=== PATIENT | female | born 1970 ===

== ENCOUNTER 2025-04-28 08:31 | Outpatient (AMB) | payer OTHER, SELFPAY ==
--- OUTSIDE RECORDS SUMMARY | 2025-04-26 12:00 | XMS_ITS | Encounter Summary ---
Author Organization [employer] Address [address] [place] [address] Care Team Providers Care Tool Distributor Name Role Phone Etelvina Jalloh MD Primary Care Prov ider Reason for Visit * Reason Comments Pain Lower left side Encounter Details Date Type Department Care Team (Late st Contact Info) Description 04/26/2025 12:00 PM EDT Office Visit Adult [facility] [address] [place] [address] Satinder Reid PA [address] [place] [address] Diverticulitis (Primary Dx) Social History Tobacco Use Types Packs/Day Years Used Date Smoking Tobacco: Never Smokeless Tobacco: Never Tobacco Cessation:Counseling Given: Not Answered Alcohol Use Standard Drinks/Week Comments Not Currently 0 (1 standard drink = 0.6 oz pur e alcohol) Food Access & Nutrition Answer Date Rec orded Do you have access to a vari ety of food including fruits and vegetables? Yes 07/13/2024 Access to Healthcare Answer Date Record ed Within the last 3 months, ho w many times did you visit the emergency department for your medical care? 0 07/13/2024 Health Literacy Answer Date Recorded How often do you need to hav e someone help you when you read instructions, pamphlets, or other written material from your doctor or pharmacy? Never 07/13/2024 Caregiver: How often do you need to have someone help you when you read instructions, pamphlets, or other written material from your doctor or pharmacy? Not on file 07/13/2024 Financial Risk Answer Date Recorded How hard is it for you to pa y for the very basics like food, housing, medical care, and air conditioning / heating? Not very hard 07/13/2024 Social Isolation Answer Date Recorded How often do you feel lonely or isolated from th ose around you? Never 07/13/2024 Food Risk Answer Date Recorded Within the past 12 months we worried whether our food would run out before we got money to buy more. Never true 07/13/2024 Within the past 12 months th e food we bought just didn't last and we didn't have money to get more. Never true 07/13/2024 Dependent Care Answer Date Recorded Do you need help finding or paying for care for your loved ones. For example, child welfare specialist or elderly care for an older adult? No 07/13/2024 Living Situation Answer Date Recorded What is your living situation? 1 09/12/2023 Comments No Sex and Gender Information Value Date Recorded Sex Assigned at Not on file Legal Sex Female 9:05 AM EST Gender Identity Not on file Sexual Orientation Not on file documented as of this encounter Last Filed Vital Signs Vital Sign Reading Time Taken Comments Blood Pressure 146/90 04/26/2025 11:45 AM EDT provider will recheck Pulse 88 04/26/2025 11:45 AM EDT Temperature 35.9 C (96.7 F) 04/26/2025 11:45 AM EDT Respiratory Rate 15 04/26/2025 11:4 5 AM EDT Oxygen Saturation 97% 04/26/2025 11: 45 AM EDT Inhaled Oxygen Concentration - - Weight 120 kg (264 lb) 04/26/2025 11:45 AM EDT Height 160 cm (5' 3 ) 04/26/2025 11:45 AM EDT Body Mass Index 46.77 04/26/2025 11:45 AM EDT documented in this encounter Ordered Prescriptions Prescription Sig Dispense Quantity Refills Last Filled Start Date End Date amoxicillin-clavul anate (AUGMENTIN) 875-125 mg per tablet Take 1 tablet by mouth 2 (two) times a day for 14 days. 28 each 04/26/2025 05/10/2025 documented in this encounter Progress Notes * ANDREW Avelar - 04/26/2025 12:00 PM EDT CHIEF COMPLAINT: Pain (Lower left side) IDENTIFIER: Annel Romo is a 54 y.o. old female. HPI: This pleasant patient presents today complaining of left lower quadrant pain, has been going on forthe last day or 2. States feels like diverticulitis she does have a history of several previous diverticulitis episodes denies nausea or vomiting no bowel habit changes denies fevers. 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 Lichen sclerosus of vulva 12/26/2021 Vitamin D deficiency 10/21/2019 Hypertension 09/30/2019 Diverticulitis 05/08/2019 Uterine fibroid 09/15/2018 MS (multiple sclerosis) ([facility] V24, [facility] V28) 05/09/2018 Carpal tunnel syndrome 02/26/2013 Past Surgical History: Procedure Laterality Date BREAST BIOPSY Bilateral PROCEDURE: BX BREAST; PERC NEEDLE CORE W/IMAG GUID; COMMENT: benign CHOLECYSTECTOMY PROCEDURE: WA LAPAROSCOPY SURG CHOLECYSTECTOMY OTHER SURGICAL HISTORY PROCEDURE: LAPAROSCOPY PROCEDURE NEC; COMMENT: ovary cyst removed OTHER SURGICAL HISTORY Bilateral 03/28/2022 PROCEDURE: WA VULVECTOMY SIMPLE PARTIAL; COMMENT: Bilateral partial simple vulvectomy TUBAL LIGATION PROCEDURE: HISTORICAL TUBAL LIGATION; COMMENT: laparascopic SOCIAL HISTORY: Social History Tobacco Use Smoking status: Never Smokeless tobacco: Never Substance Use Topics Alcohol use: Not Currently FAMILY HISTORY: Family History Problem Relation Name Age of Onset Diabetes Mother Hypertension Mother Hypertension Father Hypertension Brother Breast cancer Neg Hx Uterine cancer Neg Hx Ovarian cancer Neg Hx Colon cancer Neg Hx Family Status Relation Name Status Mother dm,htn, COPD Father aneurysm of the brain, HTN, DM Brother (Not Specified) Neg Hx (Not Specified) Sister Alive identical twin Sister Alive Sister Alive Brother Alive HTN, Obese Brother Alive Brother Alive Son Alive Son Alive Son Alive No partnership data on file MEDICATIONS DISCONTINUED/REORDERED: There are no discontinued medications. ACTIVE MEDICATIONS: Outpatient Medications Marked as Taking for the 04/26/25 encounter (Office Visit) with ANDREW Avelar Medication Sig Dispense Refill clobetasoL (TEMOVATE) 0.05 % ointment Apply topically 1 (one) time each day. 30 g 2 cloNIDine (CATAPRES) 0.1 mg tablet 1 tablet (0.1 mg total). dimethyl fumarate 240 mg capsule,delayed release(DR/EC) Take 1 capsule by mouth 2 times daily. estradioL (ESTRACE) 0.01 % (0.1 mg/gram) vaginal cream PLEASE SEE ATTACHED FOR DETAILED DIRECTIONS fluconazole (DIFLUCAN) 100 mg tablet Take 1 tablet (100 mg total) by mouth 1 (one) time each day. ALLERGIES: No Known Allergies PHYSICAL EXAM: Visit Vitals BP (!) 146/90 Comment: provider will recheck Pulse 88 Temp 35.9 ??C (96.7 ??F) (Temporal) Resp 15 Ht 1.6 m (63 ) Wt 120 kg (264 lb) SpO2 97% BMI 46.77 kg/m?? OB Status Premenopausal Smoking Status Never BSA 2.18 m?? General appearance: alert and oriented, in no acute distress Lungs: clear to auscultation bilaterally Heart: regular rate and rhythm, S1, S2 normal, no murmur, click, rub or gallop Abdomen: Does have some left lower quadrant abdominal tenderness no guarding or rebound LABS/IMAGING: none IMPRESSION: 1. Diverticulitis PLAN: 1. Likely diverticulitis based on the presentation does have a known history of this and she statesthat this feels like previous episodes no red flags at this time. We did discuss doing a CT scan but she would prefer not to at this point. I do think it is reasonable to treat her empirically with some Augmentin and see how she does if she does not have any improvement or has any signs of worsening I think we should proceed with CT scan. We also talked about colon cancer screening which I believe she is due for she states that she does have a Cologuard test at home that she plans on using. We did talk about dietary changes again discussed warning signs and symptoms. Advised the patient to call me if any problems. Patient understands the plan. Patient is in agreement with the plan. documented in this encounter Plan of Treatment Upcoming Encounters Date Type Department Care Team (Late st Contact Info) Description 05/10/2025 6:10 PM EDT Appointment Radiology Department - [address] [phone] 07/14/2025 7:30 AM EST Office Visit [facility] - [address] [phone] Etelvina Jalloh MD [address] [place] [address] documented as of this encounter Visit Diagnoses Diagnosis Diverticulitis- Primary Diverticulitis of colon (without mention of hemorrhage) documented in this encounter Historical Medications * This list may reflect changes made after this encounter. fluconazole (DIFLUCAN) 100 mg tablet Take 1 tablet (100 mg total) by mouth 1 (one) time each day. 02/19/2025 estradioL (ESTRACE) 0.01 % (0.1 mg/gram) vaginal cream PLEASE SEE ATTACHED FOR DETAILED DIRECTIONS 02/19/2025 cloNIDine (CATAPRES) 0.1 mg tablet 1 tablet (0.1 mg total). 02/18/2025 added in this encounter Additional Health Concerns Assessment Noted Time PHQ-9 Depression Total Score: 0 04/26/20 11:47 AM EDT documented as of this encounter Care Teams Tool Distributor Relationship Specialty Start Date End Date Etelvina Jalloh MD [address] [place] [address] PCP - General Internal Medicine 07/09/24 documented as of this encounter
--- NOTE | 2025-04-28 08:43 | MHC.OFFVIS ---
Intake Visit Reasons: 6m follow up Allergies No Known Allergies Allergy (Verified 04/21/25 06:54) Medication List - Last Reconciled 04/28/25 by Brigitte Foster MD cetirizine (Zyrtec) 10 mg PO DAILY PRN dimethyl fumarate 240 mg PO BID 90 days estradiol 0.01%(0.1mg/gram) vaginal omeprazole 20 mg PO DAILY HPI Comments Details: Doing well with no new symptoms. Here for f/u of RR-MS. No change in left lateral thigh numbness especially at night. Gets flushing with the generic Tecfidera more than with brand name lasting 10-15 minutes. Numbness in both legs is gone. Sleep is better. No fatigue. 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 Cognitive functions intact. LBP is better. No new symptoms of MS. Taking Tylenol arthritis for ache and pain. She developed episodes of blurred vision in the left eye starting August 2017. They last from 3-5 min. and then the vision returns to normal. One episode where the vision was blurred in both eyes. Still gets flushing with Jordan. She's never had any neurological problems and does not have any permanent visual impairment. She has no history of skin rash or joint disease no tick bites. No change in her energy level or coordination. [facility] Medical History (Updated 04/28/25 @ 08:48 by Brigitte Foster MD) Meralgia paresthetica Migraine with aura Multiple sclerosis Review of Systems Const Details: Sleep:? Difficulty getting to sleep?denies.? Difficulty maintaining sleep?denies?.? Urge to move legs?denies.? Teeth grinding?denies.? Shouting or Kicking during sleep?denies.? Abnormal behavior during sleep?denies.? Excessive sleep?denies.? Snoring?denies.? Daytime sleepiness?denies.? ?? General/Constitutional:? Change in appetite?denies.? Chills?denies.? Fatigue?denies.? Fever?denies.? Weight gain?denies.? Weight loss?denies.? ?? Ophthalmologic:? Blurred vision?Usually in the left eye and once in both eyes.? Diminished visual acuity?denies.? ?? ENT:? Stuffiness?denies.? Decreased hearing?denies.? Dry mouth?denies.? Ear pain?denies.? Nosebleed?denies.? Ringing in the ears?denies.? Sinus pain?denies.? Sore throat?denies.? Swollen glands?denies.? ?? Endocrine:? Cold intolerance?denies.? Excessive thirst?denies.? Frequent urination?denies.? Heat intolerance?denies.? ?? Respiratory:? Shortness of breath?denies.? Chest pain?denies.? Cough?denies.? ?? Breast:? Breast lump?denies.? Nipple discharge?denies.? ?? Cardiovascular:? Chest pain at rest?denies.? Chest pain with exertion?denies.? Claudication?denies.? Dizziness?denies.? Fluid accumulation in the legs?denies.? Irregular heartbeat?denies.? Palpitations?denies.? ?? Gastrointestinal:? Abdominal pain?denies.? Constipation?denies.? Diarrhea?denies.? Difficulty swallowing?denies.? Heartburn?denies.? Nausea?denies.? Rectal bleeding?denies.? ?? Hematology:? Easy bruising?denies.? Prolonged bleeding?denies.? ?? Genitourinary:? Frequent urination?denies.? Urgency?denies.? Incontinence?denies.? Erectile Dysfunction?denies.? ?? Musculoskeletal:? Neck pain?denies.? Back pain?denies.? Muscle aches?denies.? Painful joints?denies.? Sciatica?denies.? Weakness?denies.? ?? Podiatric:? Difficulty walking?denies.? Foot numbness?denies.? ?? Neurologic:? Difficulty swallowing?denies.? Balance difficulty?denies.? Coordination?normal.? Difficulty speaking?denies.? Dizziness?denies.? Fainting?denies.? Gait abnormality?denies.? Headache?denies.? Loss of strength?denies.? Loss of use of extremity?denies.? Low back pain?denies.? Memory loss?denies.? Seizures?denies.? Tics?denies.? Tingling/Numbness?denies.? Transient loss of vision?denies.? Tremor?denies.? ?? Psychiatric:? Anxiety?denies.? Auditory/visual hallucinations?denies.? Delusions?denies.? Depressed mood?denies.? Stressors?denies.? Substance abuse?denies.? Suicidal thoughts?denies.? ?? Physical Exam Neuro Other: Neurological Abnormal neurological findings:??none.? Mental Status:?alert and oriented X 3,?Normal attention, orientation, memory and affect.? Cranial Nerves:?Pupils are equal, round and reactive to light. Fundoscopy shows normal disc bilaterally. External occular muscles are intact. Visual vasquez are full, no ptosis. Face is symmetrical, no facial weakness or droop. Facial sensations are normal. Tongue protrudes in midline. Palate elevates symmetrically. Shoulder shrugging is normal..? Motor Examination:?Normal muscle tone, bulk and strength,?No atrophy or fasciculations,?No drift of the extended upper extremities,?Deep tendon reflexes are 2+?,?Plantars are flexor?.? Straight Leg Raising:?90 degrees.? Sensory Exam:?Normal light touch, temperature, pinprick, vibration and joint-position sensations?,?Rhomberg sign is absent.? Coordination:?no ataxia,?no titubation,?posxgv-rq-mgee, voqh-oiqm-rory test and rapid alternating movements were normal.? Gait Exam:?Within normal limits.? Cerebellar Signs:?Uyvgoh-xt-hnqx and efgc-dl-ynqk is normal,?no dysdiadochokinesia?.? Extrapyramidal System:?No tremor, rigidity with normal facial expressions,?No bradykinesia, no bradyphrenia. Normal arm swing and posture. No propulsion or retropulsion.? Speech:?Normal,?no dysphasia or dysarthria..? Mini Mental Status Exam Level of Consciousness:?Alert.? Orientation:?Knows correct year, month, date, day and season,?Knows correct city, county and state. Knows correct location and floor.? Registration:?Able to register 3 objects.? Attention:?Serial 7's performed accurately.? Recall:?Able to recall 3 out of 3 objects.? Language:?Normal spontaneous speech, fluency, repetition,naming, comprehension, reading and writing.? Total Score:?30/30.? General Examination GENERAL APPEARANCE:??normal,?in no acute distress.? HEART:??S1, S2 normal,?no murmurs.? LUNGS:??clear anteriorly and posteriorly.? MUSCULOSKELETAL:??normal.? EXTREMITIES:??no edema.? PSYCH:??alert, oriented,?cognitive function intact,?cooperative with exam.?Physical Examination: Assessment & Plan Assessment & Plan (1) Multiple sclerosis: Comment: 10/23/22 MRI brain with extensive white matter lesions unchanged from 2019. Code(s): G35 - Multiple sclerosis Category: Medical (2) Migraine with aura: Code(s): G43.109 - Migraine with aura, not intractable, without status migrainosus Category: Medical (3) Meralgia paresthetica: Code(s): G57.10 - Meralgia paresthetica, unspecified lower limb Category: Medical Plan Continue current meds. Exercise daily Orders: Orders MR head/brain wo/w con 3 Weeks G35 - Multiple sclerosis Medications: Refilled dimethyl fumarate 240 mg PO BID 180 caps 1RF 90 days Coding Level of Care Code Est Pt Level 4 (00249) Diagnoses Multiple sclerosis G35 Migraine with aura G43.109 Meralgia paresthetica G57.10
--- OUTSIDE RECORDS SUMMARY | 2025-04-28 08:54 | XMS_ITS | Encounter Summary ---
Author Organization [employer] Address [address] [place] [address] Care Team Providers Care Hourly Sign Language Interpreter Name Role Phone Etelvina Jalloh MD Primary Care Prov ider Reason for Visit * Reason Onset Date Comments Diverticulitis 04/26/2025 Encounter Details Date Type Department Care Team (Late st Contact Info) Description 04/26/2025 Telephone Adult Medicine [address] [phone] Etelvina Jalloh MD [address] [place] [id number] Social History Tobacco Use Types Packs/Day Years Used Date Smoking Tobacco: Never Smokeless Tobacco: Never Alcohol Use Standard Drinks/Week Comments Not Currently [...] for your loved ones. For example, child care counselor or elderly care for an older adult? No 07/13/2024 Living Situation Answer Date Recorded What is your living situation? 1 09/12/2023 Comments No Sex and Gender Information Value Date Recorded Sex Assigned at Not on file Legal Sex Female 9:05 AM EST Gender Identity Not on file Sexual Orientation Not on file documented as of this encounter Progress Notes * Princess Garcia RN - 04/26/2025 10:48 AM EDT Spoke with the pt Sharp pain on the low left side History of diverticulitis, previously flare was 2 years ago then a year before that. No changes in bowel habits, no blood in stool. Ate a Whopper yesterday and thinks the seeds on the bun are the problem Scheduled eval for 04/26 at 11:45 with 30 min * Clair Cobos - 04/26/2025 9:57 AM EDT Patient call requires triage: Symptoms patient is presenting: Having a flare up with her diverticulitis and would like to know ifshe can get antibiotics for it. How long has patient had these symptoms?: Day 2 For ALL patients calling to schedule any appointment (routine, sick visit, follow up, consult, etc.) in the outpatient setting please ask the following questions: Do you have fever of higher than 101, sore throat with difficulty swallowing or severe shortness ofbreath? no If YES to any of these above symptoms, send a message to triage and do not book. Red dot. If no, an audio or video visit should be booked. Have you had close contact with someone with Coronavirus in the last 14 days? no Have you traveled abroad? no Have you traveled recently to another state outside of [place], [place], [place], [place], [place], [place], [place]? no o If yes, did you quarantine for 14 days or have a negative covid test? no If yes to any of the above, patient is not to be scheduled in office until after 14 day quarantine or negative covid test. If pain or injury related was it due to an accident at work or from a motor vehicle accident? If yes, date of accident/Injury: No If yes, gather 3rd constitution party insurance information Third Democrat Information: not applicable PCP: Etelvina Ramsey MD Payor: [employer] EventTool / Plan: [employer] O / Product Type: *No Product type* / documented in this encounter Plan of Treatment Upcoming Encounters Date Type Department Care Team (Late st Contact Info) Description 05/10/2025 6:10 PM EDT Appointment Radiology Department [address] [phone] 07/14/2025 7:30 AM EST Office Visit Adult Medicine [address] [phone] Etelvina Jalloh MD [address] [place] [address] documented as of this encounter Visit Diagnoses Not on filedocumented in this encounter Additional Health Concerns Assessment Noted Time PHQ-9 Depression Total Score: 0 04/26/20 11:47 AM EDT documented as of this encounter Care Teams Hourly Sign Language Interpreter Relationship Specialty Start Date End Date Etelvina Jalloh MD [address] [place] [address] PCP - General Internal Medicine 07/09/24 documented as of this encounter
--- OUTSIDE RECORDS SUMMARY | 2025-04-28 08:54 | XMS_ITS ---
Author Name [facility] Organization Unknown Care Team Organization Name Specialty Phone Email Start Date End Da te [facility] Etelvina Mcdowell Primary Care 08/14/2023 04/20/2024 [facility] Sebas Del Real Primary Care 11/07/202204/02 [facility] Nishi An Primary Care 09/10/2022 [facility] ADELSO Guzmán Primary Care 07/10/202204/02
--- OUTSIDE RECORDS SUMMARY | 2025-04-28 08:54 | XMS_ITS | Encounter Summary ---
Author Organization [employer] Address [address] [place] [address] Care Team Providers Care Webmethods Consultant Name Role Phone Etelvina Jalloh MD Primary Care Prov ider Encounter Details Date Type Department Care Team (Latest Contact Info) Description 02/19/[address] [facility] - Main Lab 299 [facility] [place] [address] Norma Welch MD [address] [phone] Encounter for gynecological examination (general) (routine) without abnormal findings Social History Tobacco Use Types Packs/Day Years [...] care for your loved ones. For example, attendant children's institution or elderly care for an older adult? No 07/13/2024 Living Situation Answer Date Recorded What is your living situation? 1 09/12/2023 Comments No Sex and Gender Information Value Date Recorded Sex Assigned at Not on file Legal Sex Female 9:05 AM EST Gender Identity Not on file Sexual Orientation Not on file documented as of this encounter Plan of Treatment Upcoming Encounters Date Type Department Care Team (Late st Contact Info) Description 05/10/2025 6:10 PM EDT Appointment Radiology Department - [address] [phone] 07/14/2025 7:30 AM EST Office Visit Adult Medicine [address] [phone] Etelvina Jalloh MD [address] [place] [phone] documented as of this encounter Procedures Procedure Name Priority Date/Time Associated Diagnosis Comments HPV WITH REFLEX GENOTYPE Routine 02/18/2025 12:00 AM EDT Encounter for gynecological examination (general) (routine) without abnormal findings PAP SMEAR Routine 02/18/2025 12:00 AM EDT Encounter for gynecological examination (general) (routine) without abnormal findings documented in this encounter Results * HPV with reflex genotype (02/18/2025 12:00 AM EDT) HPV Negative Negative LAB MICROBIOLOGY METHOD 02/23/2025 1:53 PM EDT [facility] Brushing/Spatula Cervix uteri structure / Unknown 02/18/2025 02/19/2025 7:55 AM EDT us Norma Welch MD LAB MOLECULAR DIAGNOSTIC S ORDERABLES Final Result [facility] [address] [place] [address], * Pap smear (02/18/2025 12:00 AM EDT) Correction History Change General Catgorization Epithelial abnormality to Negative. No other changes. [facility] Interpretation Negative for intraepithelial lesion or malignancy 02/25/2025 10:43 AM [facility] Amendment electronically signed by COLEEN Chapman on 02/25/2025 at 10:43 AM General Categorization Negative 02/25/2025 10:43 AM EDT [facility] Comment:Corrected result: Pr eviously reported as Epithelial cell abnormality, see interpretation on 02/23/2025 at 1346 EDT. LMP 01/10/2025 02/25/2025 10:43 AM T [facility] Specimen Adequacy Satisfactory for evaluation, endocervical/brown sformation zone component absent 02/25/2025 10:43 AM [facility] Pap Methodology Liquid Based Pap Test 02/25/2025 10:43 AM [facility] Disclaimer The Pap test is a screening test which carries an inherent false negative rate. These test results should be correlated with the patient's clinical findings and history. This Pap test was processed using an automated screening system. Technical cytopathology services provided by [facility], at [address] [place] [address] (CLIA # [id number]/Cam Olea MD, Research Mechanic.) 02/25/2025 10:43 AM EDT [facility] Console Pap Interpretation Reported 02/25/2025 10:43 AM EDT [facility] Brushing/Spatula Cervix uteri structure / Unknown 02/18/2025 02/19/2025 7:55 AM EDT us Norma Welch MD LAB CYTOLOGY ORDERABLES Edited Result - Final [facility] [address] [place] [address], documented in this encounter Visit Diagnoses Diagnosis Encounter for gynecological examination (general) (routine) without abnormal findings documented in this encounter Additional Health Concerns Assessment Noted Time PHQ-9 Depression Total Score: 0 07/13/20 7:37 AM EST documented as of this encounter Care Teams Webmethods Consultant Relationship Specialty Start Date End Date Etelvina Jalloh MD [address] [place] [phone] PCP - General Internal Medicine 07/09/24 documented as of this encounter
--- OUTSIDE RECORDS SUMMARY | 2025-04-28 08:54 | XMS_ITS | Clinical Summary ---
Author Organization [address] Address [address] [place] [phone] Phone Care Team Providers Care Manager Ob Name Role Phone Etelvina Jalloh MD Primary Care Prov ider Allergies No known active allergies Medications albuterol HFA (PROAIR HFA ; PROVENTIL HFA ; VENTOLIN HFA) 90 mcg/actuation inhaler Inhale 2 Puffs into the lungs 4 times daily as needed for Cough or Wheezing. 4 Active dimethyl fumarate 240 mg capsule,delayed release(DR/EC) Take 1 capsule by mouth 2 times daily. 8 Active clobetasoL (TEMOVATE) 0.05 % ointment Apply topically 1 (one) time each day. 30 g 2 5 Active cloNIDine (CATAPRES) 0.1 mg tablet 1 tablet (0.1 mg total). 5 Active estradioL (ESTRACE) 0.01 % (0.1 mg/gram) vaginal cream PLEASE SEE ATTACHED FOR DETAILED DIRECTIONS 5 Active fluconazole (DIFLUCAN) 100 mg tablet Take 1 tablet (100 mg total) by mouth 1 (one) time each day. 5 Active amoxicillin-cla vulanate (AUGMENTIN) 875-125 mg per tablet Take 1 tablet by mouth 2 (two) times a day for 14 days. 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 Amin, margins negative. Lichen sclerosus of vulva 12/26/2021 Overview (06/03/2024): Last Assessment & Plan: Discussed recommendation for vulvar biopsy as symptoms have not improved with clobetasol use. Recommend cool compresses, use of benadryl at night and continued use of aquaphor for itching. I also reviewed that these lesions may be due to lichen sclerosus as she was previously diagnosed. I explained this is likely an autoimmune inflammatory condition and that the mainstay of therapy is use of maintenance topical steroid. I explained that women with lichen sclerosus are at about a 5 fold increased risk of SCC over the general population. I explained that the purpose of the steroid is to prevent symptoms, further scarring, and squamous cell cancer of the vulva. I also explained the importance of regular follow up. Vitamin D deficiency 10/21/2019 Hypertension 09/30/2019 Diverticulitis 05/08/2019 Uterine fibroid 09/15/2018 MS (multiple sclerosis) ([facility] V24, [facility] V2 8) 05/09/2018 Overview (06/03/2024): Diagnosed 08/2017 follows with [facility]. Presented with occular symptoms. MRI 12/09/2017 with inneumerable white matter lesions Repeat MRI in December 2018 showed no new lesions however multiple lesions as before Carpal tunnel syndrome 02/26/2013 Encounters Date Type Department Care Team Description 04/26/2025 12:00 PM EDT Office Visit Adult Medicine [address] [phone] Satinder Reid PA Diverticulitis (Primary Dx) 04/26/2025 Telephone Adult Medicine [address] [phone] Etelvina Jalloh MD 04/22/2025 Telephone Adult Medicine [address] [phone] Etelvina Jalloh MD 02/19/2025 Lab Requisition [facility] - Main Lab 299 [facility] [place] [phone] Norma Welch MD Encounter for gynecological examination (general) (routine) without abnormal findings from Last 3 Months Immunizations Name Administration Dates Next Due Influenza Quadravalent, MDCK , 0.5ml, preservative free (Flucelvax) 6mo and older 07/12/2023,06/04/2022,06/30/2021,2020,05/08/2019 Influenza Quadravalent, MDCK , 0.5ml, with preservative (Flucelvax) 6mo and older 07/17/2017 Influenza trivalent, MDCK, 0 .5mL, preservative free (Flucelvax) 6mo and older 07/13/2024 Influenza trivalent, with preservative (Fluzone; Afluria) 6mo and older 06/08/2015,06/25/2012,08/21/2011,2009 [facility] SARS-CoV-2 COVID-19, mRNA, LNP-S, preservative free 01/23/2021,12/31/2020 Tdap Tetanus diptheria acell ular pertussis (Boostrix; Adacel) 7yo and older 05/08/2019,03/23/2009 Surgical History Surgery Date Site/Laterality Comments OTHER SURGICAL HISTORY PROCEDURE: LAPAROSCOPY PROCEDURE NEC; COMMENT: ovary cyst removed TUBAL LIGATION PROCEDURE: HISTORICAL TUBAL LIGATION; COMMENT: laparascopic CHOLECYSTECTOMY PROCEDURE: FL LAPAROSCOPY SURG CHOLECYSTECTOMY OTHER SURGICAL HISTORY 03/28/2022 Bilateral PROCEDURE: FL VULVECTOMY SIMPLE PARTIAL; COMMENT: Bilateral partial simple vulvectomy BREAST BIOPSY Bilateral PROCEDURE: BX BREAST; PERC NEEDLE CORE W/IMAG GUID; COMMENT: benign Medical History Medical History Date Comments Morbid obesity (CMS/HCC V24, CMS/HCC V28) 06/25/2012 DX:Morbid obesity (HCC) MS (multiple sclerosis) (CMS /HCC V24, CMS/HCC V28) 05/09/2018 DX:MS (multiple sclerosis) ( HCC); COMMENT: Diagnosed 08/2017 follows with [facility]. Presented with occular symptoms. MRI 12/09/2017 with inneumerable white matter lesions Uterine fibroid 09/15/2018 DX:Uterine fibro id Diverticulitis 05/08/2019 DX:Diverticuliti s Family History Medical History Relation Name Comments Hypertension Brother 1 Hypertension Father Diabetes Mother Hypertension Mother Breast cancer Neg Hx Colon cancer Neg Hx Ovarian cancer Neg Hx Uterine cancer Neg Hx Relation Name Status Comments Brother 1 Brother 2 Alive HTN, Obese Brother 3 Alive Brother 4 Alive Father aneurysm of the brain, HTN, DM Mother dm,htn, COPD Sister 1 Alive identical twin Sister 2 Alive Sister 3 Alive Son 1 Alive Son 2 Alive Son 3 Alive Social History Tobacco Use Types Packs/Day Years [...] ed Within the last 3 months, ho jeff many times did you visit the emergency [...] your loved ones. For example, child care team lead or elderly care for an older adult? No 07/13/2024 Living Situation Answer Date Recorded What is your living situation? 1 09/12/2023 Comments No Sex and Gender Information Value Date Recorded Sex Assigned at Not on file Legal Sex Female 9:05 AM EST Gender Identity Not on file Sexual Orientation Not on file Obstetrics History Last Filed Vital Signs Vital Sign Reading [...] Mass Index 46.77 04/26/2025 11:45 AM EDT Plan of Treatment Upcoming Encounters Date Type Department Care Team (Late st Contact Info) Description 05/10/2025 6:10 PM EDT Appointment Radiology Department [address] [phone] 07/14/2025 7:30 AM EST Office Visit Adult Medicine [address] [phone] Etelvina Jalloh MD [address] [place] [address] Health Maintenance Due Date Last Done Comments Hepatitis B Vaccines (1 of 3 - 19+ 3-dose series) 12/12/1991 Colorectal Cancer Screening: Colonoscopy 08/11/2022 HIV Screening 08/11/2022 Pneumococcal Vaccine: 50+ Years (1 of 1 - PCV) 2022 Zoster Vaccines (1 of 2) 2022 Breast Cancer Screening 06/02/2024 06/02/20 22, 07/08/2019, 12/31/2016 Influenza Vaccine (#1) 2025 , 07/12/2023, 06/04/2022, Additional history exists Hypertension/CHF/CAD Annual BMP Blood Test 07/13/2025 07/13/2024, 07/12/2023 Social Influencers of Health Screening 07/13/2025 07/13/2024, 07/12/2024 DTaP,Tdap,and Td Vaccines (3 - Td or Tdap) 05/08/2029 05/08/2019, 03/23/2009 Cholesterol Screening (Lipid Panel) 07/13/2029 07/13/2024, 07/12/2023 Cervical Cancer Screening: HPV 02/18/2030 02/18/2025, 10/21/2019 Hepatitis C Screening Completed 08/12/2013 COVID-19 Vaccine Discontinued 01/23/2021, 12/31/2020 Depression Screening Completed 04/26/2025, 12/19/19 23 HIB Vaccines Aged Out No longer eligi ble based on patient's age to complete this topic HPV Vaccines Aged Out No longer eligi ble based on patient's age to complete this topic Hepatitis A Vaccines Aged Out No long er eligible based on patient's age to complete this topic IPV Vaccines Aged Out No longer eligi ble based on patient's age to complete this topic MMR Vaccines Aged Out No longer eligi ble based on patient's age to complete this topic Meningococcal ACWY Vaccine Aged Out N o longer eligible based on patient's age to complete this topic Meningococcal B Vaccine Aged Out No l onger eligible based on patient's age to complete this topic RSV Immunization Patients Under 20 months Aged Out No longer eligible based on patient's age to complete this topic Varicella Vaccines Aged Out No longer eligible based on patient's age to complete this topic Procedures Procedure Name Priority Date/Time Associated Diagnosis Comments PAP SMEAR Routine 02/18/2025 12:00 AM EDT Encounter for gynecological examination (general) (routine) without abnormal findings HPV WITH REFLEX GENOTYPE Routine 02/18/2025 12:00 AM EDT Encounter for gynecological examination (general) (routine) without abnormal findings COMPREHENSIVE METABOLIC PANEL Routine 07/13/2024 9:09 AM EST Physical exam LIPID PANEL WITH REFLEX TO DIRECT LDL Routine 07/13/2024 9:09 AM EST Physical exam DEPRESSION SCREENING Routine 12/18/2022 SCREENING MAMMOGRAPHY BI 2-VIEW BREAST INC CAD Routine 06/02/2022 11:36 AM EDT Encounter for screening mammogram for malignant neoplasm of breast HEPATITIS C SCREENING Routine 08/12/2013 from Last 3 Months or Most Recently Relevant to Health Maintenance Results * HPV with reflex genotype (02/18/2025 12:00 AM EDT) HPV Negative Negative LAB MICROBIOLOGY METHOD 02/23/2025 1:53 PM EDT [facility] Brushing/Spatula Cervix uteri structure / Unknown 02/18/2025 02/19/2025 7:55 AM EDT us Norma Welch MD LAB MOLECULAR DIAGNOSTIC S ORDERABLES Final Result [facility] [address] [place] [address], * Pap smear (02/18/2025 12:00 AM EDT) Correction History Change General Catgorization Epithelial abnormality to Negative. No other changes. 02/25/2025 10:43 AM EDT [facility] Interpretation Negative for intraepithelial lesion or malignancy 02/25/2025 10:43 AM EDT [facility] Amendment electronically signed by COLEEN Chapman on 02/25/2025 at 10:43 AM General Categorization Negative 02/25/2025 10:43 AM EDT [facility] Comment:Corrected result: Pr eviously reported as Epithelial cell abnormality, see interpretation on 02/23/2025 at 1346 EDT. LMP 01/10/2025 02/25/2025 10:43 AM EDT [facility] Specimen Adequacy Satisfactory for evaluation, endocervical/brown sformation zone component absent 02/25/2025 10:43 AM EDT [facility] Pap Methodology Liquid Based Pap Test 02/25/2025 10:43 AM EDT [facility] Disclaimer The Pap test is a screening test which carries an inherent false negative rate. These test results should be correlated with the patient's clinical findings and history. This Pap test was processed using an automated screening system. Technical cytopathology services provided by [facility] [place] [facility], at [address] [place] [address] (CLIA # [id number]/Cam Olea MD, Tape Duplicator.) 02/25/2025 10:43 AM EDT [facility] Console Pap Interpretation Reported 02/25/2025 10:43 AM EDT [facility] Brushing/Spatula Cervix uteri structure / Unknown 02/18/2025 02/19/2025 7:55 AM EDT us Norma Welch MD LAB CYTOLOGY ORDERABLES Edited Result - Final [facility] [address] [place] [address], * (ABNORMAL) Lipid panel with reflex to direct LDL (07/13/2024 9:09 AM EST) Cholesterol 190 0 - 200 mg/dL LAB CHEMISTRY METHOD 07/13/2024 12:15 PM EST [facility] Triglycerides 129 0 - 150 mg/dL LAB CHEMISTRY METHOD 07/13/2024 12:15 PM EST [facility] HDL 49 >=40 mg/dL LAB CHEMISTRY METHOD 07/13/2024 12:15 PM [facility] LDL Calculated 115(H) 0 - 100 mg/dL LAB CHEMISTRY METHOD 07/13/2024 12:15 PM [facility] VLDL Cholesterol Mj 25.8 mg/dL LAB CHEMISTRY METHOD 07/13/2024 12:15 PM [facility] Non HDL Chol. (LDL+VLDL) 141 <145 mg/dL LAB CHEMISTRY METHOD 07/13/2024 12:15 PM [facility] Chol/HDL Ratio 3.9 0.0 - 4.4 LAB CHEMISTRY METHOD 07/13/2024 12:15 PM [facility] Blood Venous blood specimen / Unknown Venipuncture / Unknown 07/13/2024 9:09 AM EST 07/13/2024 9:09 AM EST us Etelvina Jalloh MD LAB BLOOD ORDERABL ES Final Result [facility] [address] [place] [address], * Comprehensive metabolic panel (07/13/2024 9:09 AM EST) Sodium 138 133 - 145 mmol/L LAB CHEMISTRY METHOD 07/13/2024 12:15 PM [facility] Potassium 4.6 3.5 - 5.5 mmol/L LAB CHEMISTRY METHOD 07/13/2024 12:15 PM [facility] Chloride 106 96 - 110 mmol/L LAB CHEMISTRY METHOD 07/13/2024 12:15 PM [facility] CO2 26 21 - 32 mmol/L LAB CHEMISTRY METHOD 07/13/2024 12:15 PM [facility] Anion Gap 6 3 - 11 LAB CHEMISTRY METHOD 07/13/2024 12:15 PM [facility] Glucose 100 70 - 100 mg/dL LAB CHEMISTRY METHOD 07/13/2024 12:15 PM [facility] BUN 15 5 - 25 mg/dL LAB CHEMISTRY METHOD 07/13/2024 12:15 PM [facility] Creatinine 0.80 0.50 - 1.10 mg/dL LAB CHEMISTRY METHOD 07/13/2024 12:15 PM [facility] eGFR 89 >=60 mL/min/1. 73m2 LAB CHEMISTRY METHOD 07/13/2024 12:15 PM [facility] Comment:Calculation based on the Chronic Kidney Disease Epidemiology Collaboration (CKD-EPI) equation refit without adjustment for race. BUN/Creatinine Ratio 18.8 LAB CHEMISTRY METHOD 07/13/2024 12:15 PM [facility] Calcium 9.6 8.5 - 10.5 mg/dL LAB CHEMISTRY METHOD 07/13/2024 12:15 PM [facility] AST (SGOT) 28 10 - 42 unit/L LAB CHEMISTRY METHOD 07/13/2024 12:15 PM [facility] ALT (SGPT) 38 10 - 60 unit/L LAB CHEMISTRY METHOD 07/13/2024 12:15 PM [facility] Alkaline Phosphatase 92 42 - 121 unit/L LAB CHEMISTRY METHOD 07/13/2024 12:15 PM [facility] Total Protein 7.2 6.0 - 8.0 g/dL LAB CHEMISTRY METHOD 07/13/2024 12:15 PM [facility] Albumin 3.7 3.2 - 5.0 g/dL LAB CHEMISTRY METHOD 07/13/2024 12:15 PM [facility] Total Bilirubin 0.5 0.0 - 1.4 mg/dL LAB CHEMISTRY METHOD 07/13/2024 12:15 PM [facility] Blood Venous blood specimen / Unknown Venipuncture / Unknown 07/13/2024 9:09 AM EST 07/13/2024 9:09 AM EST Etelvina Jalloh MD LAB BLOOD ORDERABL ES Final Result [facility] ([facility] [address] [place] [address], * Depression Screening (12/18/2022) Depression Screening Abstracted Historical Provider HEALTH MAINTENANCE Final Result * SCREENING MAMMOGRAPHY BI 2-VIEW BREAST INC CAD (06/02/2022 11:36 AM EDT) Anatomical Region Laterality Modality Radiographic Julianne ging 10/12/2020 3:05 PM EST Narrative 06/04/2022 8:20 AM EDT This is a summary report. The complete report is available in the patient's medical record. If you cannot access the medical record, please contact the sending organization for a detailed fax or copy. Exam: Screening mammogram Findings: Digital bilateral full-field screening mammography is performed with tomosynthesis and interpreted with the aid of computer-aided detection. Comparison is made with 07/08/2019. Breast parenchyma is heterogeneously dense, limiting mammographic sensitivity. No new suspicious mass, architectural distortion, or suspicious calcifications. Impression: No mammographic evidence of malignancy. BI-RADS 1 - negative Procedure Note Elsie Cam MD - 08/21/2022 This is a summary report. The complete report is available in thepatient's medical record. If you cannot access the medical record, pleasecontact the sending organization for a detailed fax or copy. Exam: Screening mammogram Findings: Digital bilateral full-field screening mammography is performedwith tomosynthesis and interpreted with the aid of computer-aideddetection. Comparison is made with 07/08/2019. Breast parenchyma is heterogeneously dense, limiting mammographicsensitivity. No new suspicious mass, architectural distortion, orsuspicious calcifications. Impression: No mammographic evidence of malignancy. BI-RADS 1 - negative Alice MORALES IMG XR PROCEDURES Final Re sult * Hepatitis C Screening (08/12/2013) Hepatitis C Screening Abstracted us Historical Provider HEALTH MAINTENANCE Final Result from Last 3 Months or Most Recently Relevant to Health Maintenance Insurance [facility] Advance Directives Documents on File Type Date Recorded Patient [employer] Worker Expl anation Health Care Decision (hx) 03/29/2022 AD KITCHEN DIRECTIVE Health Care Decision (hx) 03/29/2022 AD KITCHEN DIRECTIVE Health Care Decision (hx) 03/29/2022 AD KITCHEN DIRECTIVE Health Care Decision (hx) 03/29/2022 AD KITCHEN DIRECTIVE Care Teams Manager Ob Relationship Specialty Start Date End Date Etelvina Jalloh MD [address] [place] [id number] PCP - General Internal Medicine 07/09/24
--- OUTSIDE RECORDS SUMMARY | 2025-04-28 08:55 | XMS_ITS | Encounter Summary ---
Author Organization [employer] Address [address] [place] [address] Care Team Providers Care Derrick Operator Name Role Phone Etelvina Jalloh MD Primary Care Prov ider Reason for Referral * Consultation (Routine) - Closed Specialty Diagnoses / Procedures Referred By Luciano hendrix Referred To Contact Neurology Diagnoses Multiple sclerosis (CMS/HCC V24, CMS/HCC V28) Etelvina Jalloh MD [address] [place] [id number] Phone: tel: fax: Brigitte Foster MD [address] [place] [address] [place] [address] Phone: tel: fax: Referral ID Status Reason Start Date Expiration Date V isits Requested Visits Authorized [id number] Closed Specialty Services Required 04/28/2025 04/27/2026 6 6 Reason for Visit * Reason Onset Date Comments Referral 04/22/2025 Neurology Insura ile Referral Encounter Details Date Type Department Care Team (Late st Contact Info) Description 04/22/2025 Telephone Adult Medicine [address] [phone] Etelvina Jalloh MD [address] [place] [id number] Social History Tobacco Use Types Packs/Day Years [...] care for your loved ones. For example, early childhood education specialist or elderly care for an older adult? No 07/13/2024 Living Situation Answer Date Recorded What is your living situation? 1 09/12/2023 Comments No Sex and Gender Information Value Date Recorded Sex Assigned at Not on file Legal Sex Female 9:05 AM EST Gender Identity Not on file Sexual Orientation Not on file documented as of this encounter Progress Notes * Daniela Brown - 04/22/2025 12:17 PM EDT What insurance does the patient have today? Payor: @[email or web address]@/@[email or web address] Referrals cannot be processed if the insurance is not accurate. If the insurance listed above is NO BILLING INFORMATION FOUND FOR THIS ENCOUNTER then the patients correct insurance must be obtainedand registered in [facility] or their referral can not be processed. Name of person calling to request this referral? Fax Referred To Provider (Include first and last name): Fax -[facility] [place] [facility] NPI (if known): [phone] Order/Specialty requested neurology Chief Complaint (Note: This is not a body part or a procedure): multiple sclerosis Has the patient seen provider for this problem/Dx before? yes Referred To Provider Address: Referred To Provider Referred To Provider Does patient have an appointment scheduled?: yes If yes, what is the date of the appointment?: 04/28/25 Is this a retro request? no Number of visits requested: 6 Is this appointment related to: MVA or worker compensation? no documented in this encounter Plan of Treatment Upcoming Encounters Date Type Department Care Team (Late st Contact Info) Description 05/10/2025 6:10 PM EDT Appointment Radiology Department [address] [phone] 07/14/2025 7:30 AM EST Office Visit Adult Medicine [address] [phone] Etelvina Jalloh MD [address] [place] [address] Scheduled Referrals Name Type Priority Associated Diagnoses Order Schedule Ambulatory referral to Neurology Outpatient Referral Routine Multiple sclerosis (CMS/[facility] V24, CMS/[facility] V28) Expected: 04/22/2025, Expires: 04/22/2026 documented as of this encounter Visit Diagnoses Diagnosis Multiple sclerosis (CMS/HCC V24, CMS/HCC V28)- Primary Multiple sclerosis documented in this encounter Additional Health Concerns Assessment Noted Time PHQ-9 Depression Total Score: 0 07/13/20 7:37 AM EST documented as of this encounter Care Teams Derrick Operator Relationship Specialty Start Date End Date Etelvina Jalloh MD [address] [place] [phone] PCP - General Internal Medicine 07/09/24 documented as of this encounter
== END 2025-04-28 09:11 | disposition home or self-care (01) ==
LOC: HO.HSM 08:32
PROVIDERS: PCP Internal Medicine; Referring Provider Internal Medicine; Visit Provider Psychiatry & Neurology Neurology
DX: G35 Multiple sclerosis (principal); G43.109 Migraine with aura, not intractable, without status migrainosus; G57.10 Meralgia paresthetica, unspecified lower limb
CPT/HCPCS: 99214